=== PATIENT | female | born 1970 | race Caucasian/White ===

== ENCOUNTER 2020-09-25 05:50 | Day surgery (SDC) | payer BC ==
[2020-09-22 11:05] LABS: BASOPHILS % (AUTO) 1 % (0-1); EOSINOPHILS % (AUTO) 2 % (1-7); LYMPHOCYTES % (AUTO) 25 % (22-44); MEAN CORPUSCULAR HEMOGLOBIN 30.8 pg (27.0-34.8); MEAN CORPUSCULAR HGB CONC 33.1 g/dL (32.4-35.8); MEAN PLATELET VOLUME 8.4 fL (7.4-10.4); MONOCYTES % (AUTO) 6 % (2-9); NEUTROPHILS % (AUTO) 66 % (42-75); PLATELET COUNT 362 x10^3/uL (130-400); RED BLOOD COUNT 5.64 x10^6/uL (3.82-5.3); RED CELL DISTRIBUTION WIDTH 13.7 % (9.6-15.2)
[2020-09-22 11:09] LABS: ANION GAP 8 mmol/L (5-15); CALCIUM 9.8 mg/dL (8.5-10.1); CHLORIDE 108 mmol/L (98-107)
[2020-09-22 11:15] LABS: ALANINE AMINOTRANSFERASE 17 U/L (12-78); ALKALINE PHOSPHATASE 78 U/L (45-117); BILIRUBIN,TOTAL 0.4 mg/dL (0.2-1.0); CREATININE 0.83 mg/dL (0.55-1.02); TOTAL PROTEIN 8.3 g/dL (6.4-8.2)
[2020-09-22 11:38] LABS: MD SCAN
[2020-09-22 11:54] LABS: MICROSCOPIC NOT IND
[~2020-09-25] VITALS: Ht 160 cm; Wt 107.5 kg
[~2020-09-25 05:50] MED LIST: ALBU8.5H8 INH; ASCO500T8 PO; CHOL10003 PO; FEXO60TA24 PO; METF500T17 PO; MULT-672 PO; MULT-758 PO; NORE5TAB2 PO; OMEG-14 PO; [UNRECOGNIZED DRUG - OTHER] PO
[2020-09-25 06:19] VITALS: BP 133/91
[2020-09-25] MEDS ORDERED: LACTATED RINGERS 1,000 ML IV SCH (06:30)
[2020-09-25] MEDS ORDERED: GABAPENTIN 300 MG CAPSULE PO ONE (06:30)
[2020-09-25] MEDS ORDERED: LIDOCAINE-MPF 1%, 2ML INFIL ONE (06:30)
[2020-09-25] MEDS ORDERED: ACETAMINOPHEN 500 MG TABLET PO ONE (06:30)
[2020-09-25] MEDS ORDERED: CHLORHEXIDINE 15 ML UDC MM ONE (06:30)
[2020-09-25] MEDS ORDERED: FLUORESCEIN SODIUM 500 MG/5 ML ONE (07:18)
[2020-09-25] MEDS ORDERED: BUPIVACAINE/PF 0.25% ONE (07:18)
[2020-09-25] MEDS ORDERED: EPINEPHRINE 1 MG/ML, 1ML ONE (07:19)
[2020-09-25] MEDS ORDERED: ENOXAPARIN 30 MG/0.3 ML SQ STA (07:23)
[2020-09-25] MEDS ORDERED: ACETAMINOPHEN 325 MG TABLET PO PRN (07:30)
[2020-09-25] MEDS ORDERED: DIAZEPAM 5 MG/ML, 2ML IVPush PRN (07:30)
[2020-09-25] MEDS ORDERED: HYDROmorphone 1 MG/ML, 1ML INJ IVPush PRN (07:30)
[2020-09-25] MEDS ORDERED: OXYcodone 5 MG/5 ML ORAL.SOL UDC PO PRN (07:30)
[2020-09-25] MEDS ORDERED: ONDANSETRON 2MG/ML, 2ML IVPush PRN (07:30)
[2020-09-25] MEDS ORDERED: PROMETHAZINE 25 MG/ML, 1ML IVPush PRN (07:30)
[2020-09-25] MEDS ORDERED: DIPHENHYDRAMINE 50 MG/ML, 1ML IVPush PRN (07:30)
[2020-09-25] MEDS ORDERED: MIDAZOLAM 1 MG/ML, 2ML ONE (07:33)
[2020-09-25] MEDS ORDERED: FENTANYL PF 250 MCG/5ML ONE (07:37)
[2020-09-25] MEDS ORDERED: CEFAZOLIN 1,000 MG ONE (07:39)
[2020-09-25] MEDS ORDERED: DEXAMETHASONE 4 MG/ML, 1ML ONE (07:39)
[2020-09-25] MEDS ORDERED: PROPOFOL 10 MG/ML, 20ML ONE (07:39)
[2020-09-25] MEDS ORDERED: ALBUTEROL SULFATE 200 PUFFS/8.5 GR INH ONE (07:39)
[2020-09-25] MEDS ORDERED: ONDANSETRON 2MG/ML, 2ML ONE (07:39)
[2020-09-25] MEDS ORDERED: ROCURONIUM 10 MG/ML,10ML ONE (07:39)
[2020-09-25] MEDS ORDERED: ESMOLOL 100 MG/10 ML ONE (07:39)
[2020-09-25] MEDS ORDERED: SUGAMMADEX 200 MG/2 ML IVPush ONE (07:39)
[2020-09-25] MEDS ORDERED: BUPIVACAINE/PF 0.25% INFIL ONE (08:28)
[2020-09-25] MEDS ORDERED: ESTROGENS CONJUGATED VAG CRM 0.625MG/1G, 30GM ONE (10:04)
[2020-09-25] MEDS ORDERED: FENTANYL PF 100 MCG/2ML ONE ×3 (10:46→11:54)
[2020-09-25] MEDS ORDERED: ACETAMINOPHEN 650 MG/20.3 ML UDC ONE (11:09)
[2020-09-25] MEDS ORDERED: OXYcodone 5 MG/5 ML ORAL.SOL UDC ONE (11:09)
[2020-09-25] MEDS ORDERED: HYDROmorphone 1 MG/ML, 1ML INJ ONE (11:09)
[2020-09-25] MEDS: FENTANYL PF 100 MCG/2ML IV PRN ×3 (11:20→11:51)
[2020-09-25] MEDS ORDERED: DOCUSATE 100 MG CAPSULE PO ONE (15:30)
== END 2020-09-25 17:00 | disposition home or self-care (01) ==
LOC: OUT 05:50
PROVIDERS: ATTEND Obstetrics & Gynecology
DX: N93.9 Abnormal uterine and vaginal bleeding, unspecified (principal); Z20.828 Contact with and (suspected) exposure to other viral communicable diseases; N80.0 Endometriosis of uterus; N84.0 Polyp of corpus uteri; N81.11 Cystocele, midline; N81.6 Rectocele; N73.6 Female pelvic peritoneal adhesions (postinfective); N83.8 Other noninflammatory disorders of ovary, fallopian tube and broad ligament; E11.9 Type 2 diabetes mellitus without complications; J45.909 Unspecified asthma, uncomplicated; F41.9 Anxiety disorder, unspecified; F17.210 Nicotine dependence, cigarettes, uncomplicated; E66.01 Morbid (severe) obesity due to excess calories; Z68.41 Body mass index [BMI] 40.0-44.9, adult; Z79.84 Long term (current) use of oral hypoglycemic drugs; Z79.899 Other long term (current) drug therapy; Z88.8 Allergy status to other drugs, medicaments and biological substances; Z91.041 Radiographic dye allergy status; Z98.51 Tubal ligation status; Z80.0 Family history of malignant neoplasm of digestive organs; Z80.8 Family history of malignant neoplasm of other organs or systems; Z83.3 Family history of diabetes mellitus
CPT/HCPCS: 36415; 57260; 58554; 71046; 80053; 81003; 82962; 83036; 84702; 85025; 87635; 88307; 93005; J0171; J0690; J1100; J1650; J2250; J2405; J2704; J3010; J7120